=== PATIENT | female | born 1970 | race Caucasian/White ===

== ENCOUNTER → 2016-08-23 | Outpatient (CLI) | payer OTHER ==
[~2016-08-23] MED LIST: ALBUTEROL0.09 MG/A2 INH; ATIVAN1 MG PO; ATORVASTATIN CA40 M1 PO; BACTRIM DS 8001 TA1 PO; BENICAR HCT 12.1 TA2 PO; CELEXA40 MG PO; CIPRO250 MG PO; COUMADIN10 M1 PO; HYDROCODONE BIT1 T11 PO; KLONOPIN1 M1 PO; LAMISIL250 MG PO; MIRTAZAPINE30 M2 PO; PAXIL10 MG PO; PAXIL40 MG PO; PYRIDIUM200 M1 PO; TRAMADOL HCL50 MG PO; XANAX0.25 MG PO; ZANAFLEX4 M2 PO
[2016-08-23 09:09] LABS: HEMOGLOBIN A1c 5.6 % (4.8-5.6)
[2016-08-24 07:05] LABS: FOLLICLE STIMULATING HORMONE 51.5 mIU/mL (.); LUTEINIZING HORMONE 004283 54.4 mIU/mL (.)
== END | disposition home or self-care (01) ==
LOC: LAB 08:20
PROVIDERS: Emergency Medicine
DX: Z13.9 Encounter for screening, unspecified (principal); N95.1 Menopausal and female climacteric states

== ENCOUNTER → 2020-05-29 | Outpatient (CLI) | payer OTHER ==
[~2020-05-29] MED LIST changes: +DULE1ARO1 INH; +REXULTI2 MG PO; +XARE20MG PO
== END | disposition home or self-care (01) ==
LOC: RAD 12:10
PROVIDERS: ATTEND Nurse Practitioner Family
DX: M54.5 Low back pain (principal); Z91.81 History of falling

== ENCOUNTER 2020-08-30 13:48 | Inpatient (IN) | payer OTHER ==
[~2020-08-30] VITALS: Ht 165.1 cm; Wt 81.2 kg
[2020-08-30 13:49] VITALS: BP 111/66
[2020-08-30 14:48] LABS: BASO % 0.4 % (0.0-1.0); EOS % 0.5 % (1.0-4.0); HEMATOCRIT 32.7 % (37.0-47.0); LYMPH # 1.7 10*3/uL (1.3-4.4); LYMPH % 21.6 % (27.0-41.0); MEAN CELL VOLUME 67.7 fl (81.0-99.0); MEAN CORPUSCULAR HGB 22.4 pg (27.0-31.0); MEAN PLATELET VOLUME 8.9 fl (9.6-12.3); MONO # 0.8 10*3/uL (0.1-1.0); MONO % 10.4 % (3.0-9.0); NEUT # 5.2 10*3/uL (2.3-7.9); NEUT % 66.7 % (47.0-73.0); PLATELET COUNT AUTOMATED 373 10*3/uL (130-400); RED BLOOD COUNT 4.83 10*6/uL (4.10-5.10); RED CELL DISTRI WIDTH 13.3 % (0-14.5); WHITE BLOOD COUNT 7.8 10*3/uL (4.8-10.8)
[2020-08-30 14:58] LABS: ACT PARTIAL THROMBO TIME 27.9 SECONDS (20.0-32.1); INTERNATIONAL NORM RATIO 1.1 (2.0-3.5)
[2020-08-30 15:05] LABS: ALBUMIN 3.3 gm/dl (3.1-4.5); ALKALINE PHOSPHATASE 83 U/L (45-117); BUN 15 mg/dl (7-24); CHLORIDE 78 mmol/L (98-107); CPK 91 U/L (26-192); CREATININE 0.86 mg/dL (0.55-1.02); SGOT/AST 14 IU/L (3-35); SGPT/ALT 18 U/L (12-78); SODIUM 125 mmol/L (136-145); TOTAL PROTEIN 7.3 gm/dL (6.4-8.2)
[2020-08-30 15:07] LABS: ETHYL ALCOHOL < 3.0 mg/dl (<3); POTASSIUM 1.9 mmol/L (3.5-5.1); TROPONIN I < 0.015 ng/ml (<0.045)
[2020-08-30 15:17] LABS: BILIRUBIN Negative (Negative); BLOOD Negative (Negative); CLARITY Clear (Clear); COLOR Yellow (Yellow); GLUCOSE Negative (Negative); KETONE 1+ (Negative); LEUKO ESTERASE Negative (Negative); NITRITE Negative (Negative)
[2020-08-30 15:24] LABS: URINE AMPHETAMINES < 1000 (1000ng/ml); URINE BARBITURATES < 200 (200ng/ml); URINE BENZODIAZEPINES < 200 (200ng/ml); URINE CANNABINOIDS (THC) > 50 (50ng/ml); URINE COCAINE < 300 (300ng/ml); URINE METHADONE < 300 (300ng/ml); URINE OPIATES < 300 (300ng/ml)
[2020-08-30 15:27] LABS: BACTERIA TRACE; URINE PHENCYCLIDINE < 25 (25ng/ml); WBC 0-2 wbc/hpf (0-5)
[2020-08-30 15:50] VITALS: BP 114/86
[2020-08-30 17:30] VITALS: BP 106/69
[2020-08-30] MEDS ORDERED: ATORVASTATIN CA40 M1 PO (18:14)
[2020-08-30] MEDS ORDERED: TOPIRAMATE50 M2 PO (18:15)
[2020-08-30] MEDS ORDERED: DULOXETINE HCL60 MG PO (18:15)
[2020-08-30] MEDS ORDERED: LOSARTAN POTASS25 M1 PO (18:15)
[2020-08-30] MEDS ORDERED: CETIRIZINE HYDR10 MG PO (18:15)
[2020-08-30] MEDS ORDERED: LEVOTHYROXINE100 MC1 PO (18:16)
[2020-08-30] MEDS ORDERED: HYDROCHLOROTH12.5 M2 PO (18:16)
[2020-08-30] MEDS ORDERED: FAMOTIDINE40 MG PO (18:16)
[2020-08-30] MEDS ORDERED: VITAMIN D-40010 MCG GT (18:17)
[2020-08-30] MEDS ORDERED: IBU800 M1 PO (18:18)
[2020-08-30] MEDS ORDERED: HYDROXYZINE PAM50 MG PO (18:18)
[2020-08-30] MEDS ORDERED: PROAIR HFA8.5 GM INH (18:18)
[2020-08-30 20:00] VITALS: BP 111/65
[2020-08-30 20:55] LABS: BUN 12 mg/dl (7-24); CHLORIDE 84 mmol/L (98-107); CREATININE 0.75 mg/dL (0.55-1.02); SODIUM 127 mmol/L (136-145)
[2020-08-30 21:00] LABS: POTASSIUM 2.2 mmol/L (3.5-5.1)
[2020-08-31] VITALS: BP 123/71
[2020-08-31 06:48] LABS: BASO % 0.5 % (0.0-1.0); EOS % 0.4 % (1.0-4.0); HEMATOCRIT 29.6 % (37.0-47.0); LYMPH # 2.5 10*3/uL (1.3-4.4); LYMPH % 33.7 % (27.0-41.0); MEAN CELL VOLUME 69.6 fl (81.0-99.0); MEAN CORPUSCULAR HGB 22.6 pg (27.0-31.0); MEAN CORPUSCULAR HGB CONC 32.4 g/dl (33.0-37.0); MEAN PLATELET VOLUME 9.5 fl (9.6-12.3); MONO # 0.7 10*3/uL (0.1-1.0); MONO % 9.5 % (3.0-9.0); NEUT # 4.1 10*3/uL (2.3-7.9); NEUT % 55.5 % (47.0-73.0); PLATELET COUNT AUTOMATED 343 10*3/uL (130-400); RED BLOOD COUNT 4.25 10*6/uL (4.10-5.10); RED CELL DISTRI WIDTH 13.4 % (0-14.5); WHITE BLOOD COUNT 7.4 10*3/uL (4.8-10.8)
[2020-08-31 06:55] LABS: ALBUMIN 2.8 gm/dl (3.1-4.5); BUN 9 mg/dl (7-24); CHLORIDE 90 mmol/L (98-107); CHOLESTEROL 106 mg/dL (<200); CREATININE 0.65 mg/dL (0.55-1.02); SGOT/AST 12 IU/L (3-35); SGPT/ALT 14 U/L (12-78); SODIUM 131 mmol/L (136-145)
[2020-08-31 07:02] LABS: ALKALINE PHOSPHATASE 73 U/L (45-117); FREE T4 1.59 ng/dl (0.76-1.46); HDL CHOLESTEROL 40 mg/dl (40-60); LDL CHOLESTEROL 47 mg/dL (9-159); THYROID STIM HORMONE (HS) 0.241 uIU/ml (0.358-4.75); TOTAL PROTEIN 6.4 gm/dL (6.4-8.2); TRIGLYCERIDES 94 mg/dl (<150); VLDL CHOLESTEROL 19 mg/dL (6-40)
[2020-08-31 07:14] LABS: CPK 58 U/L (26-192); POTASSIUM 2.1 mmol/L (3.5-5.1)
[2020-08-31 08:00] VITALS: BP 102/69
[2020-08-31 08:10] VITALS: BP 108/60
[2020-08-31 09:32] LABS: VITAMIN D, 25-HYDROXY 132.5 ng/mL (30-100)
[2020-08-31 12:00] VITALS: BP 114/70
[2020-08-31 16:00] VITALS: BP 126/80
[2020-08-31 20:00] VITALS: BP 118/72
[2020-09-01] VITALS: BP 103/70
[2020-09-01 06:42] LABS: BUN 7 mg/dl (7-24); CHLORIDE 100 mmol/L (98-107); CREATININE 0.57 mg/dL (0.55-1.02); POTASSIUM 2.6 mmol/L (3.5-5.1); SODIUM 136 mmol/L (136-145)
[2020-09-01 06:47] LABS: BASO % 0.4 % (0.0-1.0); EOS # 0.1 10*3/uL (0.0-0.4); EOS % 0.9 % (1.0-4.0); HEMATOCRIT 28.9 % (37.0-47.0); LYMPH % 35.8 % (27.0-41.0); MEAN CELL VOLUME 69.6 fl (81.0-99.0); MEAN CORPUSCULAR HGB 22.4 pg (27.0-31.0); MEAN CORPUSCULAR HGB CONC 32.2 g/dl (33.0-37.0); MEAN PLATELET VOLUME 9.9 fl (9.6-12.3); MONO # 0.6 10*3/uL (0.1-1.0); MONO % 7.3 % (3.0-9.0); NEUT # 4.7 10*3/uL (2.3-7.9); NEUT % 55.4 % (47.0-73.0); PLATELET COUNT AUTOMATED 322 10*3/uL (130-400); RED BLOOD COUNT 4.15 10*6/uL (4.10-5.10); RED CELL DISTRI WIDTH 13.5 % (0-14.5); WHITE BLOOD COUNT 8.5 10*3/uL (4.8-10.8)
[2020-09-01 08:00] VITALS: BP 108/56
[2020-09-01 12:00] VITALS: BP 116/61
[2020-09-01 16:00] VITALS: BP 121/82
[2020-09-01 20:00] VITALS: BP 121/78
[2020-09-02] VITALS: BP 108/72
[2020-09-02 07:29] LABS: BUN 5 mg/dl (7-24); CHLORIDE 106 mmol/L (98-107); POTASSIUM 2.8 mmol/L (3.5-5.1); SODIUM 138 mmol/L (136-145)
[2020-09-02 07:30] LABS: CREATININE 0.56 mg/dL (0.55-1.02)
[2020-09-02 08:00] VITALS: BP 114/74
[2020-09-02 12:00] VITALS: BP 143/83
[2020-09-02 15:13] VITALS: BP 128/74
[2020-09-02 16:00] VITALS: BP 139/86
[2020-09-02 20:00] VITALS: BP 124/86
[2020-09-03] VITALS: BP 110/55
[2020-09-03 07:01] LABS: BUN 4 mg/dl (7-24); CHLORIDE 110 mmol/L (98-107); CREATININE 0.54 mg/dL (0.55-1.02); POTASSIUM 3.1 mmol/L (3.5-5.1); SODIUM 142 mmol/L (136-145)
[2020-09-03 08:00] VITALS: BP 121/72
[2020-09-03 12:00] VITALS: BP 127/86
[2020-09-03 16:00] VITALS: BP 135/83
[2020-09-03 20:00] VITALS: BP 134/81
[2020-09-04] VITALS: BP 138/79
[2020-09-04 06:45] LABS: BUN 4 mg/dl (7-24); CHLORIDE 106 mmol/L (98-107); CREATININE 0.66 mg/dL (0.55-1.02); POTASSIUM 3.1 mmol/L (3.5-5.1); SODIUM 139 mmol/L (136-145)
[2020-09-04 08:00] VITALS: BP 110/68
[2020-09-04] MEDS ORDERED: DOXYCYCLINE MO100 M1 PO (11:52)
[2020-09-04] MEDS ORDERED: K-TAB20 MEQ PO (11:52)
[2020-09-04 12:00] VITALS: BP 100/56
== END 2020-09-04 12:56 | disposition home or self-care (01) | DRG 641 ==
LOC: ED 13:48 → 5E 15:18 → EDHOLD 15:18 → 5E 16:27
PROVIDERS: Emergency Medicine; Hospitalist; Internal Medicine; Internal Medicine Nephrology; ADMIT Internal Medicine; ATTEND Internal Medicine
DX: E87.6 Hypokalemia (principal); D68.51 Activated protein C resistance; N13.30 Unspecified hydronephrosis; E87.1 Hypo-osmolality and hyponatremia; R94.31 Abnormal electrocardiogram [ECG] [EKG]; D50.9 Iron deficiency anemia, unspecified; F12.90 Cannabis use, unspecified, uncomplicated; F32.9 Major depressive disorder, single episode, unspecified; F41.9 Anxiety disorder, unspecified; I10 Essential (primary) hypertension; E78.5 Hyperlipidemia, unspecified; E87.2 Acidosis; F17.210 Nicotine dependence, cigarettes, uncomplicated; L03.011 Cellulitis of right finger; S61.202A Unspecified open wound of right middle finger without damage to nail, initial encounter; E83.39 Other disorders of phosphorus metabolism; R82.4 Acetonuria; R63.4 Abnormal weight loss; E83.42 Hypomagnesemia; E87.3 Alkalosis; K76.0 Fatty (change of) liver, not elsewhere classified; K21.00 Gastro-esophageal reflux disease with esophagitis, without bleeding; K44.9 Diaphragmatic hernia without obstruction or gangrene; Z98.891 History of uterine scar from previous surgery; Z90.710 Acquired absence of both cervix and uterus; Z82.3 Family history of stroke; Z82.49 Family history of ischemic heart disease and other diseases of the circulatory system; Z71.6 Tobacco abuse counseling; X58.XXXA Exposure to other specified factors, initial encounter; Y93.89 Activity, other specified; Y92.89 Other specified places as the place of occurrence of the external cause; Y99.8 Other external cause status

== ENCOUNTER → 2023-01-10 | Outpatient (CLI) | payer OTHER ==
[~2023-01-10] MED LIST changes: +CETIRIZINE HYDR10 MG PO; +DOXYCYCLINE MO100 M1 PO; +DULOXETINE HCL60 MG PO; +FAMOTIDINE40 MG PO; +HYDROCHLOROTH12.5 M2 PO; +HYDROXYZINE PAM50 MG PO; +IBU800 M1 PO; +K-TAB20 MEQ PO; +LEVOTHYROXINE100 MC1 PO; +LOSARTAN POTASS25 M1 PO; +PROAIR HFA8.5 GM INH; +TOPIRAMATE50 M2 PO; +VITAMIN D-40010 MCG GT
== END | disposition home or self-care (01) ==
LOC: CARD 08:01
PROVIDERS: ATTEND Internal Medicine Cardiovascular Disease
DX: R06.02 Shortness of breath (principal); R00.1 Bradycardia, unspecified; R00.2 Palpitations; I10 Essential (primary) hypertension

== ENCOUNTER → 2024-05-23 | Outpatient (CLI) | payer OTHER ==
[~2024-05-23] MED LIST changes: +CIPRO500 MG PO; +KLOR-CON M2020 ME1 PO; +ONDANSETRON4 MG SL; +PREDNISONE20 M1 PO; +VIBRAMYCIN100 MG PO
== END | disposition home or self-care (01) ==
LOC: LAB 09:17
PROVIDERS: ATTEND Nurse Practitioner
DX: E87.6 Hypokalemia (principal)

== ENCOUNTER → 2024-11-09 | Outpatient (CLI) | payer OTHER ==
[2024-11-09 10:15] LABS: ALKALINE PHOSPHATASE 96 U/L (46-116); BUN 9 mg/dl (9-23); CHLORIDE 105 mmol/L (98-107); POTASSIUM 3.5 mmol/L (3.4-5.1); SGPT/ALT 11 U/L (5-49); TOTAL PROTEIN 6.5 gm/dL (6.0-8.0)
== END | disposition home or self-care (01) ==
LOC: LAB 09:07
PROVIDERS: ATTEND Physician Assistant
DX: Z01.818 Encounter for other preprocedural examination (principal); Z51.81 Encounter for therapeutic drug level monitoring; Z79.899 Other long term (current) drug therapy

== ENCOUNTER → 2025-01-17 | Outpatient (CLI) | payer OTHER | END | disposition home or self-care (01) | LOC: RAD 01-16 10:09 | PROVIDERS: ATTEND Nurse Practitioner | DX: M25.562 Pain in left knee (principal) ==